=== PATIENT | female | born 1995 | race African-American/Black ===

== ENCOUNTER 2017-07-01 08:20 | Emergency (ER) | payer OTHER ==
[2017-07-01 08:23] VITALS: BP 129/86; PULSE 73; TEMP 97.9; BMI 37.9
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
[2017-07-01] MEDS ORDERED: METOCLOPRAMIDE HCL INJECTION 10 MG/2 ML VIAL IVPUSH ONE (09:00)
[2017-07-01] MEDS ORDERED: ALBUTEROL SO4 2.5/IPRATROPIUM 0.5 INH SOL 3 ML VIAL.NEB. NEB ONE ×2 (09:11→09:20)
[2017-07-01] MEDS ORDERED: SODIUM CHLORIDE 0.9% 1000 ML INFUS.BAG IV ONE (09:19)
[2017-07-01] MEDS ORDERED: METOCLOPRAMIDE HCL INJECTION 10 MG/2 ML VIAL ONE (09:20)
[2017-07-01 09:50] LABS: BASOPHIL 0.5 % (0-2.0); MCH 27.1 pg (25.7-33.7); MCHC 32.1 g/dl (32.0-36.0); MEAN CELL VOLUME 84.2 fl (80-96); NEUTROPHILS 39.8 % (42.8-82.8); PLATELET COUNT 289 K/MM3 (134-434); RDW 14.3 % (11.6-15.6); WHITE BLOOD COUNT 5.5 K/mm3 (4.0-10.0)
[2017-07-01 10:15] LABS: ALBUMIN 3.6 g/dl (3.4-5.0); ANION GAP 6 (8-16); BILIRUBIN,TOTAL 0.3 mg/dL (0.2-1.0); CALCIUM 8.6 mg/dL (8.5-10.1); CO2 27 mmol/L (21-32); CREATININE 0.9 mg/dL (0.55-1.02); GLUCOSE,RANDOM 85 mg/dL (74-106); SGOT/AST 19 U/L (15-37); SGPT/ALT 29 U/L (12-78)
[2017-07-01 10:16] LABS: ALK PHOS 64 U/L (45-117)
== END 2017-07-01 11:50 | disposition home or self-care (01) ==
LOC: JER 08:20
PROC: 3E0F7GC Introduction of Other Therapeutic Substance into Respiratory Tract, Via Natural or Artificial Opening (ICD-10-PCS; principal; 2017-07-01)
PROC: 3E033GC Introduction of Other Therapeutic Substance into Peripheral Vein, Percutaneous Approach (ICD-10-PCS; 2017-07-01)
DX: F07.81 Postconcussional syndrome (principal); G44.319 Acute post-traumatic headache, not intractable; V43.52XD Car driver injured in collision with other type car in traffic accident, subsequent encounter; J45.909 Unspecified asthma, uncomplicated
CPT/HCPCS: 36415; 80053; 84703; 85025; 94640; 96374; 96375; 99281-25

== ENCOUNTER 2018-05-23 16:17 | Emergency (ER) | payer OTHER ==
[2018-05-23 16:24] VITALS: BP 132/73; PULSE 99; TEMP 98; BMI 39.1
--- NOTE | 2018-05-23 16:41 | PDOC ---
History of Present Illness - General Chief Complaint: Rash Stated Complaint: HIVES, 10 WKS PREG Time Seen by Provider: 05/23/18 16:40 History Source: Patient Exam Limitations: No Limitations - History of Present Illness Initial Comments: 05/23/18 17:00 Pt is a 23 y/o F currently 10 weeks , who presents to a fine rash to her face. Pt states the rash looked like hives yesterday. She states the rash is very itchy. Denies new exposures, foods, detergents. Past History - Travel Traveled outside of the country in the last 30 days: No Close contact w/someone who was outside of country & ill: No - Past Medical History Allergies/Adverse Reactions: Allergies Allergy/AdvReac Type Severity Reaction Status Date / Time No Known Allergies Allergy Verified 05/23/18 16:37 Home Medications: Ambulatory Orders Diphenhydramine HCl [Benadryl -] 25 mg PO Q8H #21 capsule 05/23/18 Asthma: Yes COPD: No - Suicide/Smoking/Psychosocial Hx Smoking History: Never smoked Hx Alcohol Use: No Drug/Substance Use Hx: No Substance Use Type: None Review of Systems - Review of Systems Able to Perform ROS?: Yes Comments:: 05/23/18 16:41 CONSTITUTIONAL: Absent: fever, chills, diaphoresis, generalized weakness, malaise, loss of appetite HEENT: Absent: rhinorrhea, nasal congestion, throat pain, throat swelling, difficulty swallowing, mouth swelling, ear pain, eye pain, visual Changes RESPIRATORY: Absent: cough, shortness of breath, dyspnea with exertion, orthopnea, wheezing, stridor, hemoptysis SKIN: Present: rash, itching Absent: pallor NEUROLOGIC: Absent: headache, focal weakness or paresthesias, dizziness, unsteady gait, seizure, mental status changes, bladder or bowel incontinence PSYCHIATRIC: Absent: anxiety, depression, suicidal or homicidal ideation, hallucinations. Is the patient limited Indonesian proficient: No *Physical Exam - Vital Signs Last Vital Signs Temp Pulse Resp BP Pulse Ox 98.0 F 99 H 20 132/73 99 05/23/18 16:20 05/23/18 16:20 05/23/18 16:20 05/23/18 16:20 05/23/18 16:20 - Physical Exam Comments: 05/23/18 16:41 GENERAL: Well developed, well nourished. Awake and alert. No acute distress. HEENT: Normocephalic, atraumatic. PERRLA, EOMI. No conjunctival pallor. Sclera are non- icteric. Moist mucous membranes. Oropharynx is clear. NECK: Supple. Full ROM. No JVD. Carotid pulses 2+ and symmetric, without bruits. No thyromegaly. No lymphadenopathy. SKIN: Fine maculopapular pruritic rash to the L cheek and forehead. scattered hives noted as well to the area. Warm and dry. Normal capillary refill. No rashes. No jaundice. NEUROLOGICAL: Alert, awake, appropriate. Cranial nerves 2-12 intact. No deficits to light touch and temperature in face, upper extremities and lower extremities. No motor deficits in the in face, upper extremities and lower extremities. Normoreflexic in the upper and lower extremities. Normal speech. Toes are down- going bilaterally. Gait is normal without ataxia. PSYCHIATRIC: Cooperative. Good eye contact. Appropriate mood and affect. Medical Decision Making - Medical Decision Making 05/23/18 17:07 Pt is a 23 y/o F with no PMH who is 10 weeks complaining of itchy rash to L cheek and forehead -Fine maculopapular rash to the L cheek consistent with a mild allergic reaction -Benadryl given with relief of symptoms -DC home with OB followup I discussed the physical exam findings, ancillary test results and final diagnoses with the patient. I answered all of the patient's questions. The patient was satisfied with the care received and felt comfortable with the discharge plan and treatment plan. The Patient agrees to follow up with the primary care physician/specialist within 24-72 hours. Return precautions were given. *DC/Admit/Observation/Transfer Diagnosis at time of Disposition: Allergic reaction Qualifiers: Encounter type: initial encounter Qualified Code(s): T78.40XA - Allergy, unspecified, initial encounter - Discharge Dispostion Disposition: HOME Condition at time of disposition: Stable Decision to Admit order: No - Referrals Referrals: Bran Harmon MD [Staff Physician] - - Patient Instructions Printed Discharge Instructions: DI for General Allergic Reactions Additional Instructions: You had an allergic reaction It is unclear what caused the reaction Please keep a diary as to when the rash gets worse Take benadryl 25mg every 8 hours as needed for itching or rash Follow up with your OB this week Return to the ED for SOB, difficulty swallowing, worsening rash or if you have any changes in your symptoms - Post Discharge Activity
[2018-05-23] MEDS ORDERED: diphenhydrAMINE HCL 25 MG CAPSULE (FP) PO ONE ×2 (16:53→16:58)
== END 2018-05-23 17:15 | disposition home or self-care (01) ==
LOC: JERFT 16:17
DX: O26.891 Other specified pregnancy related conditions, first trimester (principal); L50.0 Allergic urticaria; T78.40XA Allergy, unspecified, initial encounter; X58.XXXA Exposure to other specified factors, initial encounter; Z3A.10 10 weeks gestation of pregnancy
CPT/HCPCS: 99281-25

== ENCOUNTER 2018-06-01 12:44 | Emergency (ER) | payer OTHER ==
[2018-06-01 12:56] VITALS: BP 119/89; PULSE 107; TEMP 99.2; BMI 37.1
--- NOTE | 2018-06-01 13:16 | PDOC ---
History of Present Illness - General History Source: Patient Exam Limitations: No Limitations - History of Present Illness Initial Comments: 06/01/18 14:16 The patient is a 23 year old female, 11 weeks , with a significant past medical history of asthma who presents to the ER with diffuse abdominal pain since this morning. Patient describes the abdominal pain as sharp and cramping/ pinching in nature with associated nausea. Patient denies similar symptoms in the past. Patient denies eating any food after the onset of the abdominal pain. Patient denies taking any Tylenol for the pain. Patient reports a miscarriage in the past. Last menstrual period was on March 13. Patients LAP MAKER is Dr. Perea and has a scheduled ultrasound later this week. The patient denies chest pain, shortness of breath, headache, and dizziness. Denies fever, chills, vomit, diarrhea, and constipation. Denies dysuria, frequency, urgency, and hematuria. Allergies: NKA Past surgical history: None reported. Social history: No reported alcohol, drugs, or cigarette use. <Gila Cheung - Last Filed: 06/01/18 14:16> - General History Source: Patient Exam Limitations: No Limitations <Sara Squires - Last Filed: 06/03/18 08:43> - General Chief Complaint: Pain Stated Complaint: ABD PAIN (12 WKS ) Time Seen by Provider: 06/01/18 13:16 Past History <Gila Cheung - Last Filed: 06/01/18 14:16> - Past Medical History Asthma: Yes COPD: No - Suicide/Smoking/Psychosocial Hx Smoking History: Never smoked Hx Alcohol Use: No Drug/Substance Use Hx: No Substance Use Type: None <Sara Squires - Last Filed: 06/03/18 08:43> - Past Medical History Allergies/Adverse Reactions: Allergies Allergy/AdvReac Type Severity Reaction Status Date / Time No Known Allergies Allergy Verified 05/23/18 16:37 Home Medications: Ambulatory Orders Diphenhydramine HCl [Benadryl -] 25 mg PO Q8H #21 capsule 05/23/18 Review of Systems - Review of Systems Able to Perform ROS?: Yes Comments:: 06/01/18 14:10 ADULT ROS GENERAL/CONSTITUTIONAL: No fever or chills. No weakness. HEAD, EYES, EARS, NOSE AND THROAT: No change in vision. No ear pain or discharge. No sore throat. CARDIOVASCULAR: No chest pain or shortness of breath. RESPIRATORY: No cough, wheezing, or hemoptysis. GASTROINTESTINAL: (+) Abdominal pain. (+) Nausea. No vomiting, diarrhea or constipation. GENITOURINARY: No dysuria, frequency, or change in urination. MUSCULOSKELETAL: No joint or muscle swelling or pain. No neck or back pain. SKIN: No rash NEUROLOGIC: No headache, vertigo, loss of consciousness, or change in strength/ sensation. ENDOCRINE: No increased thirst. No abnormal weight change. HEMATOLOGIC/LYMPHATIC: No anemia, easy bleeding, or history of blood clots. ALLERGIC/IMMUNOLOGIC: No hives or skin allergy. <Gila Cheung - Last Filed: 06/01/18 14:16> *Physical Exam - Vital Signs Last Vital Signs Temp Pulse Resp BP Pulse Ox 99.2 F 107 H 20 119/89 99 06/01/18 12:55 06/01/18 12:55 06/01/18 12:55 06/01/18 12:55 06/01/18 12:55 - Physical Exam Comments: 06/01/18 14:08 ADULT PE GENERAL: The patient is in no acute distress. HEAD: Normal with no signs of trauma. EYES: PERRLA, EOMI, sclera anicteric, conjunctiva clear. ENT: Ears normal, nares patent, oropharynx clear without exudates. Moist mucous membranes. NECK: Normal range of motion, supple without lymphadenopathy, JVD, or masses. LUNGS: Breath sounds equal, clear to auscultation bilaterally. No wheezes, and no crackles. HEART:Regular rate and rhythm, normal S1 and S2 without murmur, rub or gallop. ABDOMEN: (+) Diffusely tender, tenderness to the right upper quadrant and left lower quadrant. Soft, normoactive bowel sounds. No guarding, no rebound. No masses palpable. EXTREMITIES: Normal range of motion, no edema. No clubbing or cyanosis. No erythema, or tenderness. NEUROLOGICAL: Cranial nerves II through XII grossly intact. Normal speech. No focal neurological deficits. MUSCULOSKELETAL: Back non-tender to palpation, no CVA tenderness SKIN: Warm, Dry, normal turgor, no rashes or lesions noted. <Gila Cheung - Last Filed: 06/01/18 14:16> - Vital Signs Last Vital Signs Temp Pulse Resp BP Pulse Ox 99.2 F 107 H 20 119/89 99 06/01/18 12:55 06/01/18 12:55 06/01/18 12:55 06/01/18 12:55 06/01/18 12:55 <Sara Squires - Last Filed: 06/03/18 08:43> ED Treatment Course - LABORATORY CBC & Chemistry Diagram: 06/01/18 14:09 06/01/18 14:09 <Sara Squires - Last Filed: 06/03/18 08:43> Medical Decision Making - Medical Decision Making 06/01/18 16:16 Urgency department with a complaint of abdominal pain. She is presently 11 weeks by dates, reports sudden onset of back and abdominal pain approximately one hour prior to arrival in the ER. No associated fevers or chills. Patient had nausea, no vomiting. No diarrhea. No discharge, no vaginal bleeding. No prior episodes like this. Patient has not been seen by an assistant curator, has not had an ultrasound at this point Differential diagnosis includes but is not limited to: Ovarian torsion, ruptured cyst, threatened AB, round ligament pain. Differential also includes biliary colic, nephritis. 06/01/18 16:19 Laboratory Tests 06/01/18 06/01/18 06/01/18 14:09 14:09 14:09 WBC 7.4 Hgb 13.2 Hct 39.6 Plt Count 281 BUN 9 Creatinine 0.7 Urine Blood Negative Ur Leukocyte Esterase Negative Urine WBC (Auto) 2 Urine RBC (Auto) <1 06/01/18 16:19 RUQ US nml, no stones Pending OB US Pt not willing to stay for official reading Clinical impression: Abdominal pain in , initial presentation <Sara Squires - Last Filed: 06/03/18 08:43> *DC/Admit/Observation/Transfer - Attestations Scribe Attestion: 06/01/18 14:09 Documentation prepared by Gila Cheung, acting as medical terminologist for Sara Squires MD. <Gila Cheung - Last Filed: 06/01/18 14:16> - Discharge Dispostion Decision to Admit order: No <Sara Squires - Last Filed: 06/03/18 08:43> Diagnosis at time of Disposition: Abdominal pain affecting - Discharge Dispostion Disposition: AGAINST MEDICAL ADVICE Condition at time of disposition: Stable - Referrals Referrals: Cherrie Perea MD [Primary Care Provider] - - Patient Instructions Printed Discharge Instructions: DI for Abdominal Pain -- Early Additional Instructions: Thank you for coming in to the ER today Please be sure to follow up with your assistant curator WITHIN 2 DAYS Return to the emergency department for worsening symptoms, fevers, chills, discharge, any other concerns or complaints. Please contacted the emergency department for your official ultrasound read
[2018-06-01] MEDS ORDERED: ACETAMINOPHEN 1000 MG/100 ML VIAL (NON FORMULARY) IVPB ONE (13:55)
[2018-06-01] MEDS ORDERED: ACETAMINOPHEN INJECTION 100 ML IVPB ONE (14:11)
[2018-06-01 14:42] LABS: BASO % 0.3 % (0-2.0); HEMATOCRIT 39.6 % (32.4-45.2); HEMOGLOBIN 13.2 GM/dL (10.7-15.3); MCH 28.1 pg (25.7-33.7); MCHC 33.4 g/dl (32.0-36.0); MEAN CELL VOLUME 84.2 fl (80-96); MEAN PLT VOLUME 7.5 fl (7.5-11.1); MONO % 11.6 % (3.8-10.2); NEUT % 63.1 % (42.8-82.8); PLATELET COUNT 281 K/MM3 (134-434); RDW 15.1 % (11.6-15.6); URINE APPEARANCE SLCLOUDY; URINE BILIRUBIN NEGATIVE (<2.0 mg/dL); URINE COLOR YELLOW; URINE GLUCOSE (UA) NEGATIVE (NEGATIVE); URINE KETONE NEGATIVE (NEGATIVE); URINE LEUK ESTERASE NEGATIVE (NEGATIVE); URINE NITRITE NEGATIVE (NEGATIVE); URINE UROBILINOGEN NEGATIVE mg/dL (0.2-1.0); WHITE BLOOD COUNT 7.4 K/mm3 (4.0-10.0)
[2018-06-01 14:43] LABS: URINE PROTEIN 1+ (NEGATIVE)
[2018-06-01 14:57] LABS: EPI CELLS RARE /HPF (FEW); GRANULAR CASTS 6 /lpf; URINE BACTERIA RARE /hpf (NONE SEEN); URINE MUCUS RARE
[2018-06-01 15:29] LABS: ALBUMIN 3.4 g/dl (3.4-5.0); ALK PHOS 79 U/L (45-117); ANION GAP 7 MMOL/L (8-16); BILIRUBIN,TOTAL 0.2 mg/dL (0.2-1); BLOOD UREA NITROGEN 9 mg/dL (7-18); CALCIUM 8.8 mg/dL (8.5-10.1); CHLORIDE 105 mmol/L (98-107); CO2 23 mmol/L (21-32); CREATININE 0.7 mg/dL (0.55-1.3); GLUCOSE,RANDOM 72 mg/dL (74-106); POTASSIUM 4.1 mmol/L (3.5-5.1); SGOT/AST 37 U/L (15-37); SGPT/ALT 59 U/L (13-61); SODIUM 135 mmol/L (136-145); TOT PROT 7.2 g/dl (6.4-8.2)
== END 2018-06-01 16:30 | disposition left against medical advice (07) ==
LOC: JER 12:44
PROC: 3E033NZ Introduction of Analgesics, Hypnotics, Sedatives into Peripheral Vein, Percutaneous Approach (ICD-10-PCS; principal; 2018-06-01)
DX: O26.891 Other specified pregnancy related conditions, first trimester (principal); R10.9 Unspecified abdominal pain; Z3A.12 12 weeks gestation of pregnancy
CPT/HCPCS: 36415; 76705-TC; 76801-TC; 80053; 81003; 81015; 84702; 85025; 86850; 86900; 86901; 87086; 96374; 99283-25; J0131

== ENCOUNTER 2018-12-24 08:15 | Inpatient (IN) | payer OTHER ==
[2018-12-24] MEDS ORDERED: BUTORPHANOL TARTRATE 1 MG/ML VIAL IVPB PRN (08:46)
[2018-12-24] MEDS ORDERED: DINOPROSTONE 10 MG VAGINAL SUPPOSITORY VG ONE (08:48)
--- NOTE | 2018-12-24 08:56 | HP ---
Past Medical History - Admission Chief Complaint: IOL, postdates History of Present Illness: 23yo @ 40.6wks here for IOL for postdates. Reports regular ctx q7 mins. No VB/LOF. +FM Preg c/b fibroids, obesity History Source: Patient Limitations to Obtaining History: No Limitations - Past Medical History SUPERVISOR BAKING: No: Alzheimer's, CVA, Dementia, Migraine, Multiple Sclerosis, Peripheral Neuropathy, Parkinson's, Seizure, Syncope, TIA, Vertigo, Other Cardiovascular: No: AFIB, Aneurysm, Aortic Insufficiency, Aortic Stenosis, CAD, CHF, Deep Vein Thrombosis, HTN, Hyperlipdemia, VT, Mitral Insufficiency, Mitral Stenosis, Murmur, Pulmonary Hypertension, Other Pulmonary: No: Asthma, Bronchitis, Cancer, COPD, O2 Dependent, Pneumonia, Previously Intubated, Pulmonary Embolus, Pulmonary Fibrosis, Sleep Apnea, Other Gastrointestinal: No: Ascites, Cancer, Constipation, Crohn's Disease, Diverticulitis, Diverticulosis, Esophageal Varices, Gastritis, GERD, GI Bleed, Hemorrhoids, Hiatal Hernia, Inflamatory Bowel Disease, Irritable Bowel Disease, Pancreatitis, Peptic Ulcer Disease, Ulcerative Colitis, Other Hepatobiliary: No: Cirrhosis, Cholelithiasis, Cholecystitis, Choledocholithiasis , Hepatitis A, Hepatitis B, Hepatitis C, Other Renal/: No: Renal Failure, Renal Inusuff, BPH, Cancer, Hematuria, Hemodialysis , Neurogenic Bladder, Renal Calculi, UTI, Other Reproductive: Yes: Fibroids Heme/Onc: No: Anemia, B12 Deficiency, Bleeding Disorder, Cancer, Current Chemotherapy, Current Radiation Therapy, Hemochromatosis, Hypercoaguable State, Myeloproliferative Synd, Sickle Cell Disease, Sickle Cell Trait, Thrombocytopenia, Other Infectious Disease: No: AIDS, C-Diff, Herpes Zoster, HIV, MRSA, STD's, Tuberculosis, VREF, Other Psych: No: Addictions, Anxiety, Bipolar, Depression, Panic, Psychosis, Schizophrenia, Other Musculoskeletal: No: Bursitis, Chronic low back pain, Hemiparesis, Hemiplegia, Osteoarthritis, Paraplegia, Other Rheumatology: No: Fibromyalgia, Gout, Lupus, Rheumatoid Arthritis, Sarcoidosis, Vasculitis, Other ENT: No: Allergic Rhinitis, Sinusitis, Other Endocrine: No: Bruno's Disease, Anthony's Disease, Diabetes Insipidus, Diabetes Mellitus, Hyperparathyroidism, Hyperthyroidism, Hypothyroidism, Osteopenia, SIADH, Other - Past Surgical History Past Surgical History: Yes: None Hx Myomectomy: No Hx Transabdominal Cerclage: No - Smoking History Smoking history: Never smoked - Alcohol/Substance Use Hx Alcohol Use: No History of Substance Use: reports: None - Social History Usual Living Arrangement: Yes: Alone Home Medications - Allergies Allergies/Adverse Reactions: Allergies Allergy/AdvReac Type Severity Reaction Status Date / Time No Known Allergies Allergy Verified 12/24/18 08:29 - Home Medications Home Medications: Ambulatory Orders Iron 1 tab PO DAILY 08/14/18 Vit,Calc76/Iron/Folic [Pnv 29-1 Tablet] 1 tab PO BID 08/14/18 Physical Exam - Maternity - Abdominal Exam/OB Number of Fetuses: Single Presentation: Vertex Contractions: Yes Regularity: Regular Intensity: Mild/Mod Monitor Mode: External Category: I Accelerations: Non-Uniform Decelerations: None - Vaginal Exam/OB Vaginal Bleediing: No Speculum Exam: No Dilatation (cm): 4 Effacement (%): 90 Amniotic Membrane Status: Intact Presentation: Vertex/Position Station: -3 - Physical Exam Edema: No Assessment/Plan 23yo @ 40.6wks here for IOL for postdates, but in early labor Admit to L&D IVFs Stadol prn; epidural prn; desires NCB Labs Pitocin/AROM prn Anticipate MARSHA Ivan MD
[2018-12-24] MEDS: ELECTROLYTE-148 SOLN 1,000 ML IV SCH ×2 (09:15→15:30)
[2018-12-24 09:45] VITALS: BMI 47.0
[2018-12-24 09:48] LABS: BASO % 0.2 % (0-2.0); EOS % 0.7 % (0-4.5); HEMOGLOBIN 12.5 GM/dL (10.7-15.3); LYMPH % 20.3 % (8-40); MCH 26.5 pg (25.7-33.7); MCHC 32.7 g/dl (32.0-36.0); MEAN CELL VOLUME 80.8 fl (80-96); MEAN PLT VOLUME 7.4 fl (7.5-11.1); MONO % 11.9 % (3.8-10.2); NEUT % 66.9 % (42.8-82.8); PLATELET COUNT 300 K/MM3 (134-434); RBC 4.71 M/mm3 (3.60-5.2); RDW 17.5 % (11.6-15.6); WHITE BLOOD COUNT 11.9 K/mm3 (4.0-10.0)
[2018-12-24 10:04] LABS: INR 0.88 (0.83-1.09); PROTHROMBIN TIME (PATIENT) 10.4 SEC (9.7-13.0)
[2018-12-24 10:07] LABS: ACTIVATED PTT 29.4 SECONDS (25.2-36.5)
[2018-12-24 10:09] LABS: ANION GAP 4 MMOL/L (8-16); BLOOD UREA NITROGEN 9 mg/dL (7-18); CALCIUM 9.3 mg/dL (8.5-10.1); CHLORIDE 105 mmol/L (98-107); CO2 26 mmol/L (21-32); CREATININE 0.7 mg/dL (0.55-1.3); GLUCOSE,RANDOM 73 mg/dL (74-106); POTASSIUM 4.7 mmol/L (3.5-5.1); SODIUM 135 mmol/L (136-145)
[2018-12-24] MEDS ORDERED: ALBUTEROL SO4 8 GM HFA INHALER IH PRN ×2 (17:30→19:48)
[2018-12-24] MEDS ORDERED: OXYTOCIN 30 UNITS in 0.9% NS 30 UNIT/500 ML INFUS.BAG IVPB SCH (17:30)
[2018-12-24] MEDS ORDERED: OXYTOCIN 30 UNITS in 0.9% NS 30 UNIT/500 ML INFUS.BAG IVPB ONE (17:36)
--- NOTE | 2018-12-24 18:06 | PN ---
Progress Note (short form) - Note Progress Note: IRREGULAR CONTRACTION Q 7 TO 10 MIN . FHR CAT 1, ADVISED PITOCIN STIMULATION, RISKS DISCUSSED
[2018-12-24] MEDS ORDERED: FENTANYL/BUPIVACAINE/NS/PF - PCEA - 50 ML DISP.SYRIN EP ONE (20:11)
[2018-12-24] MEDS ORDERED: NALOXONE HCL 0.4 MG/ML VIAL IVPUSH PRN (20:30)
[2018-12-24] MEDS ORDERED: LIDO 2%/EPI 1:200000 PRESRVFRE (20 ML SDVIAL) ONE (20:32)
[2018-12-24] MEDS ORDERED: FENTANYL/BUPIVACAINE/NS/PF - PCEA - 50 ML DISP.SYRIN EP SCH (20:45)
[2018-12-24] MEDS ORDERED: CITRIC ACID/SODIUM CITRATE 30 ML UNIT-DOSE CUP PO ONE (21:30)
--- NOTE | 2018-12-24 21:30 | PN ---
Progress Note (short form) - Note Progress Note: had stefan cardia after epidural , scalp electrode was change ,it was loose , new one applied, LT side, od, pit off, iv going , revaluate in 15 min for c/s cx 6 cm 80 vx -3
[2018-12-24] MEDS ORDERED: BUPIVACAINE HCL/PF 0.5% (5MG/ML) 10 ML VIAL ONE ×3 (21:50)
[2018-12-24] MEDS ORDERED: BUPIVACAINE HCL/PF 0.25% (2.5MG/ML) 10 ML VIAL ONE (21:51)
--- NOTE | 2018-12-24 21:54 | PN ---
Progress Note (short form) - Note Progress Note: fhr cat 2, with decreased BTBV advised c/s, risks discussed
[2018-12-24] MEDS ORDERED: ceFAZolin SODIUM 1 GM VIAL ONE (22:09)
[2018-12-24] MEDS ORDERED: PHENYLEPHRINE HCL 10 MG/1 ML SINGLE DOSE VIAL ONE (22:37)
[2018-12-24] MEDS ORDERED: OXYTOCIN 10 UNITS/ML VIAL ONE (22:37)
[2018-12-24] MEDS ORDERED: ONDANSETRON 4 MG/2 ML VIAL IVPUSH PRN (22:46)
[2018-12-24 22:59] LABS: VENOUS PC02 55.6 mmHg (41-51); VENOUS PH 7.24 (7.31-7.41)
[2018-12-24 23:01] LABS: ARTERIAL BLD GAS O2 SATURATION 8.6 % (95-98); ARTERIAL BLOOD GAS BASE EXCESS -6.3 meq/l (-2-2); ARTERIAL BLOOD GAS PCO2 63.3 mmHg (35-45)
[2018-12-24 23:03] LABS: ARTERIAL BLOOD GAS PO2 12.4 mmHg (80-105)
[2018-12-24 23:05] LABS: ARTERIAL BLOOD GAS pH 7.18 (7.35-7.45)
[2018-12-24 23:06] LABS: VENOUS PO2 16.9 mmHg (30-40)
[2018-12-24] MEDS ORDERED: BENZOCAINE 20% 57 GM BOTTLE TP PRN (23:09)
[2018-12-24] MEDS ORDERED: IBUPROFEN 800 MG/8 ML IJ IVPB PRN (23:09)
[2018-12-24] MEDS ORDERED: diphenhydrAMINE HCL 25 MG CAPSULE (FP) PO PRN (23:09)
[2018-12-24] MEDS ORDERED: oxyCODONE HCL 5 MG TABLET PO PRN ×2 (23:09)
[2018-12-24] MEDS ORDERED: BENZOCAINE 28 GM HEMORRHOIDAL OINTMENT PR PRN (23:09)
[2018-12-24] MEDS ORDERED: METHYLERGONOVINE MALEATE 0.2 MG/1 ML AMP IM PRN (23:09)
[2018-12-24] MEDS ORDERED: WITCH HAZEL 50% (TUCKS) 40 PAD/JAR PAD TP PRN (23:09)
[2018-12-24] MEDS ORDERED: OXYTOCIN 20 UNITS in 0.9% NS 20 UNIT/1,000 ML INFUS.BAG IV SCH (23:15)
[2018-12-24] MEDS ORDERED: DEXTROSE 5%-LACTATED RINGERS 1,000 ML IV SCH (23:15)
[2018-12-25] MEDS ORDERED: OXYTOCIN 20 UNITS in 0.9% NS 20 UNIT/1,000 ML INFUS.BAG IV ONE (00:18)
[2018-12-25] MEDS: CEFAZOLIN 1 GM/D5W 1 GM/50 ML BAG IVPB SCH ×2 (01:56→10:00)
--- NOTE | 2018-12-25 06:37 | PN ---
Progress Note (short form) - Note Progress Note: pod 1 doing well,has mild cramps Last Vital Signs Temp Pulse Resp BP Pulse Ox 98.9 F 76 18 120/80 99 12/25/18 06:00 12/25/18 06:00 12/25/18 06:00 12/25/18 06:00 12/24/18 23:55 Last Vital Signs Temp Pulse Resp BP Pulse Ox 98.9 F 76 18 120/80 99 12/25/18 06:00 12/25/18 06:00 12/25/18 06:00 12/25/18 06:00 12/24/18 23:55 CBC, BMP 12/24/18 09:25 12/24/18 09:25 abdomen soft, . no distension, mild incisional tenderness , no cva incison dry, clean no calf tenderness pod 1 . s/p c/s . doing well, afebrile plan ambulate, advance diet DVT prophylaxis
--- NOTE | 2018-12-25 07:05 | OP ---
DATE OF OPERATION: 12/24/2018 PREOPERATIVE DIAGNOSIS: , 40.6 weeks gestation, labor, non-reassuring heart rate, meconium amniotic fluid, fibroid uterus. POSTOPERATIVE DIAGNOSIS: , 40.6 weeks gestation, labor, non-reassuring heart rate, meconium amniotic fluid, fibroid uterus. PROCEDURE: Primary low segment transverse section. SURGEON: Bran Harmon MD ADMINISTRATIVE SUPPORT ASSOCIATE: EMILEE Bello ANESTHESIA: Epidural. ANESTHESIOLOGIST: Nilesh Vega MD ESTIMATED BLOOD LOSS: 500 mL. FINDINGS: Live baby girl, 9 and 9. OPERATION: The patient was taken to the operating room. Under adequate epidural anesthesia, abdomen and perineum were prepped and draped. Pfannenstiel abdominal skin incision was made. Abdominal wall was cut layer by layer until the peritoneum was exposed and incised. Upon entering the abdominal cavity, lower uterine segment was identified, and uterovesical fold of peritoneum was established, bladder was pushed down. A low transverse uterine incision was made. Amniotic sac was entered. Meconium amniotic fluid noted. Head delivered from occiput posterior position. Nasopharynx was suctioned, and live baby girl was delivered. Placenta was delivered manually. Uterine cavity was cleaned of all remaining tissue. Uterine incision was closed in 2 layers, 1st layer with 0 Biosyn continuous suture, the 2nd layer with 0 Biosyn imbricating the 1st layer. Bladder flap was closed with 0 Biosyn continuous suture. Both tubes and ovaries were checked, were normal. There was a large 7 cm fibroid on the fundal area of the uterus with omental adhesion, and then, several smaller ones on the body of the uterus noted. Then, pelvic cavity was several times irrigated. Abdomen was clear. Then, peritoneum was closed with 0 Biosyn continuous suture, muscles were brought together with interrupted sutures of 0 Biosyn, fascia was closed with 0 Biosyn continuous suture, subcutaneous fat with interrupted suture of 0 Biosyn, and the skin was closed with 4-0 Biosyn subcuticular continuous subcuticular suture. The patient tolerated the procedure well, left the OR in good condition. Camryn [id number]
[2018-12-25 08:31] LABS: BASO % 0.2 % (0-2.0); EOS % 0.2 % (0-4.5); HEMATOCRIT 36.6 % (32.4-45.2); LYMPH % 12.9 % (8-40); MCH 26.3 pg (25.7-33.7); MCHC 32.9 g/dl (32.0-36.0); MEAN PLT VOLUME 7.5 fl (7.5-11.1); MONO % 9.9 % (3.8-10.2); NEUT % 76.8 % (42.8-82.8); PLATELET COUNT 286 K/MM3 (134-434); RBC 4.58 M/mm3 (3.60-5.2); RDW 17.3 % (11.6-15.6); WHITE BLOOD COUNT 12.9 K/mm3 (4.0-10.0)
[2018-12-25] MEDS: ENOXAPARIN NA (PORCINE) 40 MG/0.4 ML DISP.SYRIN SQ SCH (10:20)
[2018-12-25] MEDS: IBUPROFEN 600 MG TABLET (FP) PO PRN (14:11)
[2018-12-25] MEDS: SIMETHICONE 80 MG TAB.CHEW (FP) PO PRN ×2 (14:11→22:15)
[2018-12-25] MEDS: ACETAMINOPHEN 325 MG TABLET (FP) PO PRN (14:12)
[2018-12-25] MEDS ORDERED: BISACODYL 10 MG SUPP.RECT PR PRN (23:10)
[2018-12-26] MEDS: IBUPROFEN 600 MG TABLET (FP) PO PRN ×4 (04:30→21:37)
[2018-12-26] MEDS: SIMETHICONE 80 MG TAB.CHEW (FP) PO PRN ×4 (04:30→21:36)
[2018-12-26] MEDS: ACETAMINOPHEN 325 MG TABLET (FP) PO PRN ×4 (04:31→21:37)
[2018-12-26] MEDS: ENOXAPARIN NA (PORCINE) 40 MG/0.4 ML DISP.SYRIN SQ SCH (09:13)
--- NOTE | 2018-12-26 10:21 | PN ---
Post Progress Note - Subjective Subjective: 23 yo Para 1, status post primary , seen and evaluated. She's out of bed to chair. She tolerates regular diet. Post Day: 2 Type of Delivery: Primary C/S Vital Signs: Vital Signs Temperature 99.1 F 12/26/18 07:30 Pulse Rate 97 H 12/26/18 07:30 Respiratory Rate 18 12/26/18 07:30 Blood Pressure 119/69 12/26/18 07:30 O2 Sat by Pulse Oximetry (%) 99 12/24/18 23:55 Uterus: Yes: Fundus Firm Incision: Yes: Hever intact Abdomen/GI: Yes: Abdomen soft, Tolerating PO Lochia: Yes: Rubra Lochia, amount: Small Extremities: Yes: Calves non-tender Perineum: Yes: Intact Activity: Ambulating - Labs Labs: CBC WBC 12.9 K/mm3 (4.0-10.0) H 12/25/18 07:50 RBC 4.58 M/mm3 (3.60-5.2) 12/25/18 07:50 Hgb 12.0 GM/dL (10.7-15.3) 12/25/18 07:50 Hct 36.6 % (32.4-45.2) 12/25/18 07:50 MCV 80.0 fl (80-96) 12/25/18 07:50 MCH 26.3 pg (25.7-33.7) 12/25/18 07:50 MCHC 32.9 g/dl (32.0-36.0) 12/25/18 07:50 RDW 17.3 % (11.6-15.6) H 12/25/18 07:50 Plt Count 286 K/MM3 (134-434) 12/25/18 07:50 MPV 7.5 fl (7.5-11.1) 12/25/18 07:50 Absolute Neuts (auto) 9.9 K/mm3 (1.5-8.0) H 12/25/18 07:50 Neutrophils % 76.8 % (42.8-82.8) 12/25/18 07:50 Lymphocytes % 12.9 % (8-40) D 12/25/18 07:50 Monocytes % 9.9 % (3.8-10.2) 12/25/18 07:50 Eosinophils % 0.2 % (0-4.5) 12/25/18 07:50 Basophils % 0.2 % (0-2.0) 12/25/18 07:50 Nucleated RBC % 0 % (0-0) 12/25/18 07:50 Problem List - Problems (1) Status post primary low transverse section Code(s): Z98.891 - HISTORY OF UTERINE SCAR FROM PREVIOUS SURGERY Assessment/Plan Status post primary Stable Ambulation Analgesia as needed Continue post op care
[2018-12-26] MEDS ORDERED: SENNOSIDES/DOCUSATE COMBO (SENNA PLUS) TABLET (UD) PO PRN (22:00)
[2018-12-27] MEDS: IBUPROFEN 600 MG TABLET (FP) PO PRN ×2 (06:22→10:54)
[2018-12-27] MEDS: SIMETHICONE 80 MG TAB.CHEW (FP) PO PRN ×2 (06:22→10:55)
[2018-12-27] MEDS: ACETAMINOPHEN 325 MG TABLET (FP) PO PRN ×2 (06:23→10:55)
[2018-12-27 07:22] LABS: BASO % 0.3 % (0-2.0); EOS % 1.7 % (0-4.5); HEMATOCRIT 37.5 % (32.4-45.2); HEMOGLOBIN 12.3 GM/dL (10.7-15.3); MCH 26.2 pg (25.7-33.7); MCHC 32.9 g/dl (32.0-36.0); MEAN CELL VOLUME 79.7 fl (80-96); MEAN PLT VOLUME 7.3 fl (7.5-11.1); MONO % 9.8 % (3.8-10.2); NEUT % 71.2 % (42.8-82.8); PLATELET COUNT 350 K/MM3 (134-434); RDW 17.7 % (11.6-15.6); WHITE BLOOD COUNT 10.8 K/mm3 (4.0-10.0)
--- NOTE | 2018-12-27 08:06 | DS ---
Physical Exam-REPORTING SPECIALIST Vital Signs: Vital Signs Temperature 98.3 F 12/26/18 20:06 Pulse Rate 105 H 12/26/18 20:06 Respiratory Rate 20 12/26/18 20:06 Blood Pressure 136/68 12/26/18 20:06 O2 Sat by Pulse Oximetry (%) 99 12/24/18 23:55 Constitutional: Yes: Well Nourished Eyes: Yes: Conjunctiva Clear HENT: Yes: Atraumatic Neck: Yes: Supple Cardiovascular: Yes: Regular Rate and Rhythm Respiratory: Yes: Regular Gastrointestinal: Yes: Normal Bowel Sounds Pelvis: Yes: WNL External Genitalia: Yes: Normal Vaginal Exam: Yes: Normal Cervix: Yes: Normal Uterus: Yes: Firm Wound/Incision: Yes: Well Approximated Neurological: Yes: Alert, Oriented ...Motor Strength: WNL Psychiatric: Yes: Alert, Oriented Labs: CBC, BMP 12/27/18 06:00 12/24/18 09:25 Delivery - Delivery Type of Anesthesia: Epidural Episiotomy/Laceration: None EBL (cc): 500 Delivery, Single - Stages of Labor Date 1st Stage Initiatied: 12/23/18 Time 1st Stage Initiated: 23:05 Date of Delivery: 12/24/18 Time of Delivery: 22:19 Time Placenta Delivered: 22:20 - Condition of Infant Machine Filler Servicer/Plant Tender Present: Yes Name: Latonia Perez Gender: Female Weight: 8 lb 12 oz Position: Left, OA Total Hours ROM (Hrs/Mins): 11 HOURS AND 39 MINUTES - 1 Minute Total Score: 9 5 Minutes Total Score: 9 - Feeding Plan Initial Plan: Exclusive throughout hospitalization Discharge Summary Reason For Visit: INDUCTION OF LABOR Current Active Problems Status post primary low transverse section (Acute) Procedures: Principal: Primary Hospital Course: Routine post op care Condition: Good - Instructions Diet, Activity, Other Instructions: Regular diet No driving, no lifting x 4 weeks F/U in clinic in 2 weeks Disposition: HOME - Home Medications Comprehensive Discharge Medication List: Ambulatory Orders Vit,Calc76/Iron/Folic [Pnv 29-1 Tablet] 1 tab PO DAILY 08/14/18 Albuterol Sulfate Inhaler - [Ventolin Hfa Inhaler -] 1 - 2 puff IN PRN 12/24/18
[2018-12-27 08:07] VITALS: BP 126/85; PULSE 97; TEMP 98.1
[2018-12-27] MEDS: ENOXAPARIN NA (PORCINE) 40 MG/0.4 ML DISP.SYRIN SQ SCH (09:28)
--- NOTE | 2018-12-28 11:14 | PATH ---
Surgical Pathology Report Patient Name: JONATHAN ROBLERO Med. Rec. #: [id number] /Age/Gender: 1995 (Age: 23) / F Account: [id number] Location: [facility] OBS/MUTUAL FUND ACCOUNTANT Taken: 12/24/2018 Received: 12/25/2018 Reported: 12/28/2018 Physicians: Bran Harmon M.D. Specimen(s) Received PLACENTA Clinical History , 40.6 weeks, post dates, fibroids, nonreassuring heart rate Final Diagnosis PLACENTA, DELIVERY: FOCALLY DISRUPTED THIRD TRIMESTER PLACENTA WITH THREE VESSEL UMBILICAL CORD AND UNREMARKABLE PLACENTAL MEMBRANES. Electronically Signed Jed Booker M.D. Gross Description The specimen is received fresh labeled placenta and is a 514 gram, 21.0 x 15.5 x 1.7 cm. placenta with attached membranes and umbilical cord. The attached membranes are hoff green, meconium stained, translucent with focal opacities and insert marginally. The umbilical cord measures 12.5 cm. in length and averages 1.0 cm. in diameter. The cord inserts eccentrically, 6 cm. to the nearest margin. No true knots or strictures are identified. Cut surface of the umbilical cord reveals 3 vessels. The surface is caldwell green, meconium stained with minimal fibrin deposition and appropriate caliber vessels. The maternal surface is red-brown with focal defects. Sectioning reveals red-brown, spongy parenchyma. No lesions are identified. [place] sections are submitted in three cassettes as follows: 1- membrane rolls and umbilical cord; 2-3- full thickness sections of placenta. /12/25/2018 [facility]12/25/2018
== END 2018-12-27 13:20 | disposition home or self-care (01) | DRG 540 ==
LOC: JDEL 08:15 → JLDR 08:16 → J3W 12-25 00:20
PROVIDERS: ADMIT Obstetrics & Gynecology; ATTEND Obstetrics & Gynecology
PROC: 10D00Z1 Extraction of Products of Conception, Low, Open Approach (ICD-10-PCS; principal; 2018-12-24)
DX: O48.0 Post-term pregnancy (principal); O76 Abnormality in fetal heart rate and rhythm complicating labor and delivery; O99.214 Obesity complicating childbirth; E66.9 Obesity, unspecified; O34.13 Maternal care for benign tumor of corpus uteri, third trimester; O77.0 Labor and delivery complicated by meconium in amniotic fluid; Z3A.40 40 weeks gestation of pregnancy; Z37.0 Single live birth
CPT/HCPCS: 36415; 36600; 80048; 82803; 85025; 85610; 85730; 86593; 86850; 86900; 86901; 88307-TC

== ENCOUNTER 2019-04-07 14:51 | Emergency (ER) | payer OTHER ==
--- NOTE | 2019-04-07 14:55 | PDOC ---
Rapid Medical Evaluation Time Seen by Provider: 04/07/19 14:53 Medical Evaluation: Allergies Allergy/AdvReac Type Severity Reaction Status Date / Time No Known Allergies Allergy Verified 12/24/18 08:29 04/07/19 14:54 I have performed a brief in-person evaluation of this patient. The patient presents with a chief complaint of: Dizziness, [place] and nausea x days. 3 months post s/p csection. Pertinent physical exam findings:well mya and stable I have ordered the following:labs The patient will proceed to the ED for further evaluation. Discharge Disposition - Diagnosis Dizziness - Referrals - Patient Instructions - Post Discharge Activity
[2019-04-07 15:04] VITALS: BP 118/69; PULSE 73; TEMP 98.1; BMI 38.7
[2019-04-07] MEDS ORDERED: METOCLOPRAMIDE HCL INJECTION 10 MG/2 ML VIAL IVPB ONE (15:48)
[2019-04-07] MEDS ORDERED: SODIUM CHLORIDE 1,000 ML IV STA (15:49)
[2019-04-07] MEDS ORDERED: ACETAMINOPHEN 1000 MG/100 ML VIAL (NON FORMULARY) IVPB ONE (15:49)
[2019-04-07] MEDS ORDERED: ACETAMINOPHEN 500 MG TABLET (FP) PO ONE (16:00)
[2019-04-07 16:15] LABS: PH,URINE 6.5 (5.0-8.0); URINE APPEARANCE CLEAR; URINE BILIRUBIN NEGATIVE (NEGATIVE); URINE COLOR YELLOW; URINE GLUCOSE (UA) NEGATIVE (NEGATIVE); URINE KETONE TRACE (NEGATIVE); URINE LEUK ESTERASE NEGATIVE (NEGATIVE); URINE NITRITE NEGATIVE (NEGATIVE); URINE PROTEIN NEGATIVE (NEGATIVE)
[2019-04-07 16:23] LABS: BASO % 0.7 % (0-2.0); EOS % 1.9 % (0-4.5); HEMATOCRIT 41.7 % (32.4-45.2); HEMOGLOBIN 13.5 GM/dL (10.7-15.3); LYMPH % 45.3 % (8-40); MCH 26.5 pg (25.7-33.7); MCHC 32.4 g/dl (32.0-36.0); MEAN CELL VOLUME 81.7 fl (80-96); MEAN PLT VOLUME 7.2 fl (7.5-11.1); MONO % 9.6 % (3.8-10.2); NEUT % 42.5 % (42.8-82.8); PLATELET COUNT 324 K/MM3 (134-434); RDW 17.6 % (11.6-15.6); WHITE BLOOD COUNT 6.6 K/mm3 (4.0-10.0)
[2019-04-07] MEDS ORDERED: ACETAMINOPHEN 500 MG TABLET (FP) ONE (16:38)
[2019-04-07] MEDS ORDERED: ONDANSETRON *ODT* 4 MG TABLET SL ONE (16:39)
[2019-04-07] MEDS ORDERED: ONDANSETRON *ODT* 4 MG TABLET ONE (16:40)
[2019-04-07 16:49] LABS: ALBUMIN 3.7 g/dl (3.4-5.0); BILIRUBIN,TOTAL 0.4 mg/dL (0.2-1); BLOOD UREA NITROGEN 11.2 mg/dL (7-18); CALCIUM 9.1 mg/dL (8.5-10.1); POTASSIUM 4.8 mmol/L (3.5-5.1); TOT PROT 7.3 g/dl (6.4-8.2)
--- NOTE | 2019-04-07 16:54 | PDOC ---
History of Present Illness <Kiara Stevens - Last Filed: 04/07/19 17:51> - General History Source: Patient Exam Limitations: No Limitations - History of Present Illness Initial Comments: 04/07/19 16:39 HISTORY OF PRESENT ILLNESS: 24-year-old woman past medical history of asthma who is 3 months who presents emergency department for evaluation of frontal headache, intermittent dizziness with decreased appetite for the past 7 days. Patient reports having one episode of bilious vomiting over that time. Patient reports all she does experiencing anorexia she is able to force himself to eat. Patient reports she feels less nauseous when she pumps for breast milk which is when she eats. Patient reports she is drinking liquids without difficulty. Patient reports headache is intermittent and is a 7/10 described as an aching throb. Patient is unable to identify any aggravating or alleviating factors. She denies fevers, chills, blurry vision. No recent travel or sick contacts. PAST MEDICAL HISTORY: see HPI SURGICAL HISTORY: Denies ALLERGIES: No known drug allergies REVIEW OF SYSTEMS General/Constitutional: Denies fever or chills. Denies weakness, weight change. HEENT: Denies change in vision. Denies ear pain or discharge. Denies sore throat. Cardiovascular: Denies chest pain or shortness of breath. Respiratory: Denies cough, wheezing, or hemoptysis. Gastrointestinal: see HPI Genitourinary: Denies dysuria, frequency, or change in urination. Musculoskeletal: Denies joint or muscle swelling or pain. Denies neck or back pain. Skin and breasts: Denies rash or easy bruising. Neurologic: see HPI Psychiatric: Denies depression or anxiety. Endocrine: Denies increased thirst. Denies abnormal weight change. Hematologic/Lymphatic: Denies anemia, easy bleeding, or history of blood clots. Allergic/Immunologic: Denies hives or skin allergy. Denies latex allergy. PHYSICAL EXAM General Appearance: Well-appearing, appropriately dressed. No apparent distress , no intoxication. HEENT: EOMI, PERRLA, normal ENT inspection, normal voice, TMs normal, pharynx normal. No conjunctival pallor. No photophobia, scleral icterus. Neck: Supple. Trachea midline. No tenderness, rigidity, carotid bruit, stridor , lymphadenopathy, or thyromegaly. Respiratory/Chest: Lungs CTAB. No shortness of breath, chest tenderness, respiratory distress, accessory muscle use. No crackles, rales, rhonchi, stridor , wheezing, dullness Cardiovascular: RRR. S1, S2. No JVD, murmur, bradycardia, tachycardia. Gastrointestinal/Abdominal: Normal bowel sounds. Abdomen soft, non-distended. No tenderness or rebound tenderness. No organomegaly, pulsatile mass, guarding, hernia, hepatomegaly, splenomegaly. Lymphatic: No adenopathy, tenderness. Integumentary: Appropriate color, dry, warm. No cyanosis, erythema, jaundice or rash. Casserian section scar intact. No signs of infection present. Neurologic: yarn mercerizer operator II-XII intact. Fully oriented, alert. Appropriate mood/affect. Motor strength 5/5. No appreciable EOM palsy, facial droop or sensory deficit. <Nilesh Yin - Last Filed: 04/08/19 01:39> - General Chief Complaint: Headache Stated Complaint: HEADACHE/ DIZZNESS/NAUSEA Time Seen by Provider: 04/07/19 14:53 Past History <Kiara Stevens - Last Filed: 04/07/19 17:51> - Past Medical History Asthma: Yes (seasonal) Cancer: No Cardiac Disorders: No COPD: No Diabetes: No HTN: No Seizures: No Thyroid Disease: No - Immunization History Immunization Up to Date: No - Suicide/Smoking/Psychosocial Hx Smoking History: Never smoked Have you smoked in the past 12 months: No Information on smoking cessation initiated: No Hx Alcohol Use: No Drug/Substance Use Hx: No Substance Use Type: None Hx Substance Use Treatment: No <Nilesh Yin - Last Filed: 04/08/19 01:39> - Past Medical History Allergies/Adverse Reactions: Allergies Allergy/AdvReac Type Severity Reaction Status Date / Time No Known Allergies Allergy Verified 12/24/18 08:29 Home Medications: Ambulatory Orders Albuterol Sulfate Inhaler - [Ventolin Hfa Inhaler -] 1 - 2 puff IN PRN 12/24/18 *Physical Exam - Vital Signs Last Vital Signs Temp Pulse Resp BP Pulse Ox 98.1 F 73 18 118/69 98 04/07/19 15:02 04/07/19 15:02 04/07/19 15:02 04/07/19 15:02 04/07/19 15:02 <Kiara Stevense - Last Filed: 04/07/19 17:51> - Vital Signs Last Vital Signs Temp Pulse Resp BP Pulse Ox 98.1 F 73 18 118/69 98 04/07/19 15:02 04/07/19 15:02 04/07/19 15:02 04/07/19 15:02 04/07/19 15:02 <HumphreyNilesh - Last Filed: 04/08/19 01:39> ED Treatment Course - LABORATORY CBC & Chemistry Diagram: 04/07/19 15:52 04/07/19 15:52 - ADDITIONAL ORDERS Additional order review: Laboratory Results 04/07/19 04/07/19 04/07/19 15:52 15:52 15:52 Sodium 141 Potassium 4.8 Chloride 108 H Carbon Dioxide 29 Anion Gap 4 L BUN 11.2 Creatinine 1.0 Est GFR (CKD-EPI)AfAm 90.04 Est GFR (CKD-EPI)NonAf 77.69 Random Glucose 83 Calcium 9.1 Total Bilirubin 0.4 AST 17 ALT 31 Alkaline Phosphatase 112 Total Protein 7.3 Albumin 3.7 Urine Color Yellow Urine Appearance Clear Urine pH 6.5 D Ur Specific [place] 1.025 Urine Protein Negative Urine Glucose (UA) Negative Urine Ketones Trace H Urine Blood Negative Urine Nitrite Negative Urine Bilirubin Negative Urine Urobilinogen 1.0 Ur Leukocyte Esterase Negative Urine HCG, Qual Negative 04/07/19 15:52 RBC 5.10 MCV 81.7 MCHC 32.4 RDW 17.6 H MPV 7.2 L Neutrophils % 42.5 L D Lymphocytes % 45.3 H D Monocytes % 9.6 Eosinophils % 1.9 Basophils % 0.7 - Medications Given in the ED: ED Medications Discontinued Medications Generic Name Dose Route Start Last Admin Trade Name Roger PRN Reason Stop Dose Admin Acetaminophen 1,000 mg 04/07/19 15:49 04/07/19 16:45 Ofirmev Injection - IVPB 04/07/19 15:50 Not Given ONCE ONE Acetaminophen 1,000 mg 04/07/19 16:00 04/07/19 16:42 Tylenol - PO 04/07/19 16:01 1,000 mg ONCE ONE Administration Diphenhydramine HCl 12.5 mg 04/07/19 15:48 04/07/19 16:45 Benadryl Injection - IVPB 04/07/19 15:49 Not Given ONCE ONE Sodium Chloride 1,000 mls @ 1,000 mls/hr 04/07/19 15:49 04/07/19 16:45 Normal Saline - IV 04/07/19 16:48 Not Given ASDIR STA Metoclopramide HCl 10 mg 04/07/19 15:48 04/07/19 16:45 Reglan Injection - IVPB 04/07/19 15:49 Not Given ONCE ONE Ondansetron HCl 4 mg 04/07/19 16:39 04/07/19 16:43 Zofran Odt - SL 04/07/19 16:40 4 mg ONCE ONE Administration <Kiara Stevens - Last Filed: 04/07/19 17:51> - LABORATORY CBC & Chemistry Diagram: 04/07/19 15:52 04/07/19 15:52 - ADDITIONAL ORDERS Additional order review: Laboratory Results 04/07/19 04/07/19 15:52 15:52 Urine Color Yellow Urine Appearance Clear Urine pH 6.5 D Ur Specific [place] 1.025 Urine Protein Negative Urine Glucose (UA) Negative Urine Ketones Trace H Urine Blood Negative Urine Nitrite Negative Urine Bilirubin Negative Urine Urobilinogen 1.0 Ur Leukocyte Esterase Negative Urine HCG, Qual Negative 04/07/19 15:52 RBC 5.10 MCV 81.7 MCHC 32.4 RDW 17.6 H MPV 7.2 L Neutrophils % 42.5 L D Lymphocytes % 45.3 H D Monocytes % 9.6 Eosinophils % 1.9 Basophils % 0.7 <Nilesh Yin - Last Filed: 04/08/19 01:39> Medical Decision Making - Medical Decision Making The patient was seen and evaluated in conjunction with midlevel provider under my direct supervision, ancillary studies were reviewed. I agree with the plan as outlined BUS TRANSPORTATION MANAGER Humphrey. HPI, workup/dispo as outlined. VS reviewed, wnl. UA neg for proteins. VS normal, so doubt preeclampsia no sz/neuro sx to suggest eclapsia. labs and lytes normal preg test neg. walked out prior to full discharge, as no where to be found. will check 04/07/19 17:09 04/07/19 17:51 <Kiara Stevens - Last Filed: 04/07/19 17:51> - Medical Decision Making 04/07/19 16:54 A/P: 24-year-old woman with 1 week of headache, dizziness, anorexia Physical exam is within normal limits with mild suprapubic tenderness Patient denies all symptoms related to depression. Labs, urine per rapid medical evaluation Patient is refusing IV at this time. Tylenol 1 g orally now Zofran 4 mg sublingual now Encourage by mouth fluids Reassess 04/07/19 18:55 Tenderness to discuss results with patient's and for reevaluation of been unsuccessful as patient is not he found anywhere in the emergency department. Multiple rounds of been made and patient is not in the ER. <Nilesh Yin - Last Filed: 04/08/19 01:39> *DC/Admit/Observation/Transfer <Kiara Stevens - Last Filed: 04/07/19 17:51> <Nilesh Yin - Last Filed: 04/08/19 01:39> Diagnosis at time of Disposition: Dizziness - Discharge Dispostion Disposition: ELOPED Condition at time of disposition: Stable
== END 2019-04-07 18:22 | disposition left against medical advice (07) ==
LOC: JER 14:51
DX: R42 Dizziness and giddiness (principal)
CPT/HCPCS: 36415; 80053; 81003; 84703; 85025; 87086; 99282-25; Q0162